=== PATIENT | male | born 1995 | race Caucasian/White ===

== ENCOUNTER 2016-10-16 11:39 | Emergency (ER) | payer OTHER ==
[~2016-10-16] VITALS: Ht 167.6 cm; Wt 130.3 kg
[2016-10-16 12:56] LABS: MCH 27.8 PG (29.0-34.0); MCV 84.1 FL (86-99); MEAN PLAT.VOLUME 10.3 uM^3 (9.0-12.4); PLATELET COUNT 174 K/uL (156-360); RBC DIS.WIDTH-CV 13.3 % (11.8-14.6); RBC DIS.WIDTH-SD 41.1 % (39-53); RED BLOOD COUNT 5.11 M/uL (4.00-5.50); WHITE BLOOD COUNT 18.3 K/uL (4.1-10.2)
[2016-10-16 13:12] LABS: CHLORIDE 105 mEq/L (99-109); POTASSIUM 4.5 mEq/L (3.7-5.4); SODIUM 138 mEq/L (136-147)
[2016-10-16 13:13] LABS: GLUCOSE 113 mg/dL (70-99)
[2016-10-16 13:15] LABS: ANION GAP 10 MEQ/L (2-14)
[2016-10-16 13:17] LABS: GFR ESTIMATE (CALCULATED) > 59 mL/min/
[2016-10-16 13:18] LABS: UREA NITROGEN (BUN) 10 mg/dL (9-23)
[2016-10-16 13:22] LABS: TROP-I INTERPRETATION NEGATIVE; TROPONIN-I < 0.01 ng/mL (0.0-0.30)
[2016-10-16] MEDS ORDERED: VIBRAMYCIN100 MG PO (15:49)
[2016-10-16] MEDS ORDERED: KEFLEX500 MG PO (16:08)
[2016-10-16] MEDS ORDERED: MOTRIN800 MG PO (16:09)
[2016-10-16] MEDS ORDERED: ULTRACET1 TABLET PO (16:09)
[2016-10-16] MEDS ORDERED: CICLOPIROX45 GM TP (16:14)
[2016-10-16 16:28] VITALS: BP 117/55
== END 2016-10-16 16:29 | disposition home or self-care (01) ==
LOC: EME 11:39
DX: L03.115 Cellulitis of right lower limb (principal); B35.3 Tinea pedis; R07.9 Chest pain, unspecified; R00.0 Tachycardia, unspecified; F17.200 Nicotine dependence, unspecified, uncomplicated
CPT/HCPCS: 71020; 80048; 83605; 84484; 85027; 87040; 93005; 93971; 99281; 99285; J0696; J1885; J7030; J7050

== ENCOUNTER 2017-04-13 14:38 | Emergency (ER) | payer OTHER ==
[~2017-04-13] VITALS: Ht 167.6 cm; Wt 133.9 kg
[~2017-04-13 14:38] MED LIST: CICLOPIROX45 GM TP; KEFLEX500 MG PO; MOTRIN800 MG PO; ULTRACET1 TABLET PO; VIBRAMYCIN100 MG PO
[2017-04-13 14:56] VITALS: BP 126/88
[2017-04-13] MEDS ORDERED: NAPROSYN500 MG PO (15:26)
[2017-04-13] MEDS ORDERED: VALIUM5 MG PO (15:26)
== END 2017-04-13 15:36 | disposition home or self-care (01) ==
LOC: EME 14:38
DX: M54.5 Low back pain (principal); M62.830 Muscle spasm of back; F17.200 Nicotine dependence, unspecified, uncomplicated; Z88.2 Allergy status to sulfonamides
CPT/HCPCS: 99281; 99284